=== PATIENT | male | born 1955 ===

== ENCOUNTER 2018-05-03 10:03 | Emergency (ER) | payer OTHER ==
--- NOTE | 2018-05-03 10:54 | UC ---
Complaint Male HPI - HPI Summary HPI Summary: IN ROOM NOTE: A 62 y/o M presents to [facility] with c/o L testicular pain to touch onset four days ago. Aggravating factor: certain movement/positions. Associated sx: lump at site of of pain L testicle. Denies penile discharge, dysuria. Pt states he worked out on day of onset, and later was moving equipment at work when he felt a sharp pain. He states it does not feel similar to his previous groin pulls. No PMHx of hernias, STD, testicular torsion. He recently moved to [facility], scheduled to see Dr. Johnson as new PCP. MD NOTE: Vital signs stable. Afebrile. BP is 131/78. 3/10 testicular discomfort. Visit history is non-contributory. Pt is not on anti-HTN medication. NURSE'S NOTE: Patient was having testicular pain and did a self-exam this am and found a lump on the left side of his testicle. He states that on Monday night he was moving a heavy piece of equipment, which is when the pain started. - History of Current Complaint Chief Complaint: UCGU Stated Complaint: PERSONAL Hx Obtained From: Patient Onset/Duration: Lasting Days, Still Present Timing: Constant Severity Initially: Mild Severity Currently: Mild Pain Intensity: 3 Pain Scale Used: 0-10 Numeric Location: Testicle - L Character: Sharp Aggravating Factor(s): Other - certain movements/positions Associated Signs And Symptoms: Negative: Dysuria, Penile Discharge - Allergies/Home Medications Allergies/Adverse Reactions: Allergies Allergy/AdvReac Type Severity Reaction Status Date / Time No Known Allergies Allergy Verified 05/03/18 10:13 PMH/Surg Hx/FS Hx/Imm Hx Previously Healthy: No - pos: back surgery Other Endocrine History: pos: pre-DM Other Cardiovascular History: neg: HTN Other Respiratory History: neg: COPD - Surgical History Surgical History: Yes Surgery Procedure, Year, and Place: cervical back surgery - 1989 - Family History Known Family History: Positive: Cardiac Disease - uncles from [place], Diabetes - mother - type II - Social History Occupation: Employed Full-time Lives: Alone Alcohol Use: None Substance Use Type: None Smoking Status (MU): Never Smoked Tobacco Review of Systems Constitutional: Negative - fever Genitourinary: Negative - penile discharge and dysuria, Other - L testicular pain and lump All Other Systems Reviewed And Are Negative: Yes - Comments Additional Review of Systems Comments: POSITIVE: L TESTICULAR LUMP AND PAIN NEGATIVE: PENILE DISCHARGE, DYSURIA, FEVER Physical Exam - Summary Physical Exam Summary: Appearance: The patient is well-appearing, is in no pain distress, and is well- nourished. Eyes: Conjunctiva are clear. ENT: The hearing is grossly normal, the pharynx is normal, and the TMs are normal. There is no muffled or hoarse voice. Neck: The neck is supple and there is no lymphadenopathy. Respiratory: The chest is nontender. The lungs are clear, there are normal breath sounds, and there is no respiratory distress. Cardiovascular: Heart is regular rate and rhythm. There is no murmur. Abdomen: The abdomen is soft and nontender. There is no organomegaly. Bowel sounds: present Musculoskeletal: Strength is intact. The patient moves all extremities. Neurological: The patient is alert. Psychological: The patient displays age appropriate behavior Skin: Negative for rashes. GENITAL EXAM: NORMAL MALE GENITALIA WITH BOTH TESTES DESCENDED, NO INGUINAL ADENOPATHY. A TENDER AREA POSTERIORLY ON L TESTICLE APPROXIMATELY 1 CM, THE TESTICLE IS SOFT OVER THE EPIDIDYMIS. NO PAIN OVER SPERMATIC CORD OR EVIDENCE OF SHORTENING OF ATTACHMENT OF EITHER TESTICLE CONSISTENT WITH TORSION. TESTICLES SHOW NO REDNESS. EXAM FOR INGUINAL HERNIA IS NEGATIVE, NO EVIDENCE OF FEMORAL HERNIA. Triage Information Reviewed: Yes Vital Signs: Initial Vital Signs Temp 97.9 F 05/03/18 10:18 Pulse 72 05/03/18 10:18 Resp 16 05/03/18 10:18 BP 131/78 05/03/18 10:18 Pulse Ox 99 05/03/18 10:18 Vital Signs Reviewed: Yes Diagnostics - Laboratory Diagnostic Studies Completed/Ordered: Left Testitcular U/S as read by radiologist: IMPRESSION: NO EVIDENCE FOR EPIDIDYMITIS OR TORSION. There is a 2 mm left epididymal head cyst. E physician has reviewed this report. Re-Evaluation - Re-Evaluation 1 Re-Evaluation Time: 11:40 Change: Unchanged Comment: Discussing plans for UA and U/S. Pt voiced understanding. 2 Re-Evaluation Time: 12:28 Change: Unchanged Comment: Discussing U/S results with pt. Complaint Male Course/Dx - Course Course Of Treatment: Medications have been included in the original chart and reviewed. Pre-Hypertensive BP reading of 131/78; patient referred to PCP for follow-up. A testicular U/S of L testes was ordered. The U/S showed no epididymitis, no torsion, but was positive for 2mm epidydmal cyst. Consulted with Dr. Flores, feels the cyst may be benign, and should be treated with Doxy as if it were epididymitis. Patient has been given an antibiotic because findings on physical examination and health history. The risks and benefits of antibiotic treatment have been discussed and patient has voiced understanding of these risks including the possibility of developing clostridium difficile enterocolitis. - Differential Dx/Diagnosis Provider Diagnoses: 1. Epididymal cyst, left. 2. Elevated blood pressure without diagnosis of hypertension - Physician Notifications Discussed Patient Care With: Alexi Flores - urology Time Discussed With Above Provider: 12:41 Instructed by Provider To: Other - Recommends Doxy. Discharge - Sign-Out/Discharge Documenting (check all that apply): Patient Departure - DC All imaging exams completed and their final reports reviewed: Yes - Discharge Plan Condition: Stable Disposition: HOME Prescriptions: DOXYcycline CAP(*) [DOXYcycline 100MG CAP(*)] 100 mg PO BID #20 cap MDD 2 Patient Education Materials: Epididymitis (ED) Referrals: Jaya Lindsey MD [Primary Care Provider] - Alexi Flores MD [Medical Doctor] - Additional Instructions: PLEASE SEEK CARE AT THE EMERGENCY DEPARTMENT IF SYMPTOMS WORSEN OR IF NEW SYMPTOMS DEVELOP. FOLLOW UP WITH YOUR PRIMARY CARE PHYSICIAN. Your blood pressure reading today was 131/78, indicating PREHYPERTENSION. Follow -up with your primary care provider within 4 weeks for blood pressure readings and further evaluation. WE DISCUSSED: 1. Your ultrasound showed a cyst. This is nothing to worry about. It may be inflamed from infection of the epididymis. 2. Take doxycycline 100mg, twice a day for 10 days. 3. Follow up with your doctor to recheck testicle. 4. Call your doctor for any increasing pain or temperature or swelling or go to ED. 5. I have given you the number of a urologist if this gives you trouble in the future. - Billing Disposition and Condition Condition: STABLE Disposition: Home - Attestation Statements Document Initiated by Scribe: Yes Documenting Scribe: So[facility] Provider For Whom Scribe is Documenting (Include Credential): Eleazar Kumar MD Scribe Attestation: I, Uche Rodriguez, scribed for Eleazar Kumar MD on 05/03/18 at 1250. Scribe Documentation Reviewed: Yes Provider Attestation: The documentation as recorded by the scribe, Uche Rodriguez accurately reflects the service I personally performed and the decisions made by me, Eleazar Kumar MD Lab Results - Lab Results Lab Results: 05/03/18 12:33 POC Urine Color Yellow POC Urine Clarity Clear POC Urine pH 6.5 POC Ur Specif [place] 1.010 POC Urine Protein Negative POC Ur Glucose (UA) Negative POC Urine Ketones Negative POC Urine Blood Negative POC Urine Nitrite Negative POC Urine Bilirubin Negative POC Urine Urobilinogen 0.2 POC U Leukocyte Esteras Negative
[2018-05-03] MEDS ORDERED: cefTRIAXone VIAL(*) 1,000 MG VIAL IM ONE (11:27)
[2018-05-03] MEDS ORDERED: Lidocaine 1%* 5 ML VIAL INJ ONE (12:10)
--- NOTE | 2018-05-03 12:11 | RAD ---
INDICATION: Left testicular pain. COMPARISON: There are no relevant prior studies available for comparison. TECHNIQUE: Multiple real-time images of the testicles were obtained including color Doppler images and Doppler tracings. FINDINGS: The testicles are normal in size, shape and echogenicity. The right testicle measured 4.6 x 2.2 x 3.0 cm and the left testicle measured 4.2 x 1.9 x 2.9 cm. No intratesticular mass is seen. There is symmetric vascular flow within both testicles. There is a 2 mm left epididymal head cyst. IMPRESSION: NO EVIDENCE FOR EPIDIDYMITIS OR TORSION.
[2018-05-03 12:37] VITALS: BP 128/74
== END 2018-05-03 13:04 | disposition home or self-care (01) ==
LOC: UCEAST 10:03
DX: N50.3 Cyst of epididymis (principal); R03.0 Elevated blood-pressure reading, without diagnosis of hypertension
CPT/HCPCS: 76870; 81003; 87491; 87591; 96372; 99202; G0463; J0696